=== PATIENT | female | born 1965 | race Two or more races ===

== ENCOUNTER 2019-03-31 08:50 | Day surgery (SDC) | payer OTHER ==
[~2019-03-31] VITALS: Ht 149.9 cm; Wt 53.1 kg
[2019-03-31] VITALS (12 sets, daily range): BP systolic 95–121; BP diastolic 50–80
[~2019-03-31 08:50] MED LIST: PAIN MEDICATION PO
[2019-03-31] MEDS ORDERED: Bacitracin 50000 Units Vial ONE (09:00)
[2019-03-31] MEDS ORDERED: Lidocaine 1% Plain 30 ml INJ ONE (09:00)
[2019-03-31] MEDS ORDERED: Betadine 10% Oint 30gm TOPIC ONE (09:00)
[2019-03-31] MEDS ORDERED: Bupivacaine 0.25% Inj 30ml INJ ONE (09:00)
[2019-03-31] MEDS ORDERED: Dexamethasone 4mg/ml vial ONE (09:00)
[2019-03-31] MEDS ORDERED: ceFAZolin sod 1 GM in NS 55 ML IVPB ONE (09:00)
[2019-03-31] MEDS ORDERED: NS Irrig 1000ml IRRIG ONE ×2 (09:09→10:05)
[2019-03-31] MEDS ORDERED: fentaNYL 100 mcg/2 mL IV ONE (09:18)
[2019-03-31] MEDS ORDERED: Midazolam 2mg/2ml Inj ONE (09:18)
[2019-03-31] MEDS ORDERED: IBUPROFEN600 MG ORAL (09:21)
--- NOTE | 2019-03-31 09:25 | Pre-Procedure Note/Attestation ---
Pre-Procedure Note/Attestation Complete Prior to Procedure Planned Procedure: left Procedure Narrative: correction of bunion with screw fixation and staple left foot , correction of 2nd hammer toe left with arthroplasty and mpj release with k-wire fixation Indications for Procedure Pre-Operative Diagnosis: left foot painful bunion , 2nd toe left hammer toe with mpj contraction Attestation I attest that I discussed the nature of the procedure; its benefits; risks and complications; and alternatives (and the risks and benefits of such alternatives ), prior to the procedure, with the patient (or the patient's legal volunteer patient representative). I attest that, if there was a reasonable possibility of needing a blood transfusion, the patient (or the patient's legal volunteer patient representative) was given the [place] [employer] [facility] standardized written summary, pursuant to the [place] Blood Safety Act ([place] Health and Safety Code # 1645, as amended). I attest that I re-evaluated the patient just prior to the surgery and that there has been no change in the patient's H&P, except as documented below: Nader Roberts DPM Mar 31, 2019 09:25
--- NOTE | 2019-03-31 09:48 | Anethesia Preoperative Eval ---
Anesthesia Pre-op PMH/ROS General Date of Evaluation: Mar 31, 2019 Time of Evaluation: 09:44 Anesthesiologist: alissa ASA Score: ASA 1 Mallampati Score Class I : Soft palate, uvula, fauces, pillars visible Class II: Soft palate, uvula, fauces visible Class III: Soft palate, base of uvula visible Class IV: Only hard plate visible Mallampati Classification: Class I Surgeon: Brock Diagnosis: Bunion Surgical Procedure: Bunionectomy Anesthesia History: none Family History: no anesthesia problems Allergies: Coded Allergies: No Known Allergies (Unverified , 03/31/19) Medications: see eMAR Patient NPO?: Yes NPO Date: Mar 31, 2019 NPO Time: 00:01 Past Medical History Cardiovascular: Denies: HTN, CAD, [place], valve dz, arrhythmia, other Pulmonary: Denies: asthma, COPD, JOSE, other Gastrointestinal/Genitourinary: Denies: GERD, CRI, ESRD, other Neurologic/Psychiatric: Denies: dementia, CVA, depression/anxiety, TIA, other Endocrine: Denies: DM, hypothyroidism, steroids, other HEENT: Denies: cataract (L), cataract (R), glaucoma, EYAK (L), EYAK (R), other Hematology/Immune: Denies: anemia, DVT, bleeding disorder, other Musculoskeletal/Integumentary: Denies: OA, RA, DJD, DDD, edema, other PSxH Narrative: bunionectomy Anesthesia Pre-op Phys. Exam Physician Exam Last Vital Signs Date Time Temp Pulse Resp B/P (MAP) Pulse Ox O2 Delivery O2 Flow Rate FiO2 03/31/19 09:26 Room Air Constitutional: NAD Neurologic: CN 2-12 intact Cardiovascular: RRR Respiratory: CTA Gastrointestinal: S/NT/ND Airway Exam Mallampati Classification 2 Mallampati Score: Class II MO: full ROM: full Dentures: no upper, no lower Anesthesia Pre-op A/P Studies Pre-op Studies: EKG - SR Risk Assessment & Plan Plan: MAC Status Change Before Surgery: No Pre-Antibiotics Drug: ancef Given Within 1 Hr of Incision: Yes Time Given: 10:00 Amber Steen CRNA Mar 31, 2019 09:48
[2019-03-31] MEDS ORDERED: LR 1000ml ONE (09:50)
[2019-03-31] MEDS ORDERED: Sterile Water Irrig 1000ml IRRIG ONE (09:50)
[2019-03-31] MEDS ORDERED: Propofol 200mg/20ml IV ONE (10:37)
[2019-03-31] MEDS ORDERED: Lidocaine 1% MPF 10mg/ml 5ml ONE (10:37)
--- NOTE | 2019-03-31 11:44 | Diagnostic Imaging Report ---
Indication: Foot pain Comparison: None Findings: 3 views of the left foot were obtained. No acute fractures, malalignment, erosions or periostitis are identified. There is a moderate hallux valgus deformity with the some narrowing of the MTP joint. Soft tissues are unremarkable. Impression: No acute findings
--- NOTE | 2019-03-31 12:04 | Brief Operative Note ---
Immediate Post Operative Note Operative Note Pre-op Diagnosis: left foot painful bunion , 2nd toe left hammer toe with mpj contraction Procedure: correction of bunion with osteotomy and screw fication with petra and staple fixation left foot , correction of hammer toe 2nd left with arthroplasty and MPJ release Post-op Diagnosis: same as pre up Post-op Diagnosis: same as pre-op Surgeon: nader roberts Anesthesiologist: dr ca Anesthesia: moderate sedation Specimen: yes Complications: none Condition: stable Fluids: 0 Estimated Blood Loss: none Drains: none Tourniquet time: 100 Implant(s) used?: Yes Nader Roberts DPM Mar 31, 2019 12:04
--- NOTE | 2019-03-31 13:01 | Immediate Post-Op Evaluation ---
Immediate Post-Op Evalulation Immediate Post-Op Evalulation Procedure: left bunionectomy Date of Evaluation: Mar 31, 2019 Time of Evaluation: 12:10 IV Fluids: 600 Blood Pressure Systolic: 97 Blood Pressure Diastolic: 50 Pulse Rate: 58 Respiratory Rate: 14 O2 Sat by Pulse Oximetry: 99 Temperature (Fahrenheit): 97.5 Nausea: No Vomiting: No Complications none Patient Status: awake, reacts, patent Hydration Status: adequate Drug: ancef Given Within 1 Hr of Incision: Yes Time Given: 10:00 Amber Steen CRNA Mar 31, 2019 13:01
--- NOTE | 2019-03-31 13:02 | 48 Hour Post Anesthesia Eval ---
Post Anesthesia Evaluation Procedure: left bunionectomy Date of Evaluation: Mar 31, 2019 Time of Evaluation: 13:01 Hydration Status: adequate Cardiopulmonary Status: stable Mental Status/LOC: patient returned to baseline Amber Steen CRNA Mar 31, 2019 13:01
--- NOTE | 2019-03-31 13:02 | 48 Hour Post Anesthesia Eval ---
Post Anesthesia Evaluation Procedure: left bunionectomy Date of Evaluation: Mar 31, 2019 Time of Evaluation: 13:02 Blood Pressure Systolic: 101 0: 61 Pulse Rate: 51 Respiratory Rate: 14 O2 Sat by Pulse Oximetry: 98 Airway: patent Nausea: No Vomiting: No Hydration Status: adequate Cardiopulmonary Status: stable Mental Status/LOC: patient returned to baseline Post-Anesthesia Complications: none Follow-up care needed: N/A Amber Steen CRNA Mar 31, 2019 13:02
--- NOTE | 2019-03-31 14:11 | Diagnostic Imaging Report ---
Indication: Foot pain Comparison: None Findings: 3 views of the left foot were obtained. Study is significantly degraded by cast present over the midfoot and forefoot. Patient's had previous first distal metatarsal osteotomy with screw fixation. There is also a metallic anchor or staple crossing an osteotomy at the base of the first proximal phalange. IMPRESSION: Postop changes as described above. Study is limited
--- NOTE | 2019-03-31 19:01 | Pre-op HX & Phy Repo 2 SIG ---
DATE OF ADMISSION: 03/31/2019 NOTE: "POOR AUDIO QUALITY" ANTICIPATED DATE OF SURGERY: 03/31/2019 SURGEON: Nader Roberts DPM. HISTORY OF PRESENT ILLNESS: This is a 53-year-old female who has been suffering from left foot pain for the past few years. The patient has been progressively getting worse during the past year. She has tried numerous conservative measures and had consulted orthopedic physician in the past and treatment was rendered. The patient works and requires daily mobility. She does not report any recent illness including nausea, vomiting, fever, chills, or shortness of breath. The patient is scheduled to have surgery today, 03/31/2019, at [facility]. PAST MEDICAL HISTORY: None pertinent. PAST SURGICAL HISTORY: Right foot bunionectomy and hammertoe fixation in 2019. ALLERGIES: No known drug allergies. SOCIAL HISTORY: No illicit drugs. FAMILY HISTORY: No pertinent findings. PHYSICAL EXAMINATION: VITAL SIGNS: Temperature is 98.2, pulse is 68, respiratory rate 16, blood pressure is 134/84, and O2 is 98% on room temperature. DERMATOLOGICAL: There are no open lesions. Hyperkeratotic tissue of the plantar medial of the first MPJ of the left is noticed. VASCULAR: Dorsalis pedis artery and posterior arteries are palpable. No edema. MUSCULOSKELETAL: Bony prominence on the medial side of the left foot is noticeable abutting towards the lateral. The hallux is causing the second toe to overlap. Full muscle strength is noticed. Contraction of the MPJ of the second and PIPJ joint of the second. She almost has decreased motion of the first MPJ with tracking. Pain on palpation and movement of the first MPJ is noticed. ASSESSMENT AND PLAN: This is a 53-year-old female who presents with progressively painful left foot for the past few years. The patient has tried numerous conservative measures; however, she is still experiencing daily pain. I recommended surgery as the next extensive management. The risks, benefits, and alternatives were discussed with the patient in detail who understands and would like to proceed with surgical intervention. All the patient's questions have been addressed and answered. The patient is scheduled to have surgery today, 03/31/2019, at [facility]. Nader Roberts D.P.M. DR: Harsha JOB#: [id number] CC:
--- NOTE | 2019-03-31 21:45 | Operative Note - Dictated ---
DATE OF OPERATION: 03/31/2019 SURGEON: Nader Roberts DPM PREOPERATIVE DIAGNOSES: Hallux abductovalgus with medial eminence, left foot; hammertoe with contracted MPJ, second toe, left. POSTOPERATIVE DIAGNOSES: Hallux abductovalgus with medial eminence, left foot; hammertoe with contracted MPJ, second toe, left. HEMOSTASIS: Pneumatic ankle tourniquet at 250 mmHg. TITLE OF THE SURGERY: Correction of painful bunion of left foot with osteotomy and screw fixation, correction of interphalangeal hallux with Hakeem stable fixation, and correction of hammertoe with arthroplasty and MPJ release. ESTIMATED BLOOD LOSS: Negligible. MATERIALS USED: A 22 mm 3-0 cannulated Vilex screw was used and 8 x 8 x 8 Vilex compression staple was used, 2-0 Vicryl, 3-0 Vicryl, 4-0 nylon. INJECTABLE: A 20 mL of 0.5% Marcaine and 1% lidocaine in the ratio of 1:1 was injected in the left foot in the Mon block fashion at the first MPJ and the second MPJ. Postoperatively, 2 mL of dexamethasone with 2 mL of 0.25% Marcaine was given postoperatively for pain management and decreased inflammation. PATHOLOGY: Bone resected from the head of the proximal phalanx and the medial eminence was sent for pathology and further study. DRESSING: The incision was covered using Xeroform, Betadine ointment, 4 x 4, Kerlix, Andry, and a forefoot cast was applied to the patient. COMPLICATION: None. CONDITION: Stable. ANESTHESIOLOGIST: Dr. Steen. DESCRIPTION OF THE PROCEDURE IN DETAIL: The patient was brought into the operating room and assisted onto the operating table in supine position. She was well padded to avoid any excessive pressure. The patient was then given 1 gram of Ancef before the start of surgery. At this time, a time-out was performed. Cotton padded and pneumatic ankle tourniquet was then placed about the patient's left ankle. Local anesthesia was administered with approximately 20 mL of 1:1 mixture of 0.5% plain Marcaine and 1% lidocaine. The foot was then scrubbed, prepared, and draped in the usual aseptic manner. Attention was then directed to the left foot. Pneumatic ankle tourniquet was then inflated to 250 mmHg using an Esmarch bandage. At this time, a preplanned incision was made on the left foot at the medial dorsal eminence following the contour of the bunion deformity, extending down to the PIPJ of the hallux. The incision was deepened through subcutaneous tissue. All vital structures were inspected and retracted from the field. Bleeders were cauterized and retracted. At this time, the capsule was exposed. A linear capsulotomy was performed to expose the head of the metatarsophalangeal joint. Multicystic changes with hypertrophic bone was noticed. It was also noticed that the bone was extremely osteoporotic diameter was very thin. After the capsule was retracted and released off the head at the metatarsal, the lateral release was done through the original incision. Then, using a sagittal saw, the medial eminence was osteotomized and passed from the field. At this time, it was noticed that there was dorsal exostosis. The exostosis was osteotomized using a sagittal saw. At this time, attention was directed to the plantar adhesion of the sesamoid and sesamoid apparatus was released from the lateral ligament to a more appropriate position. At this time, the osteotomy was done in a modified [place] osteotomy with the V shape with the apex facing distally and the base facing proximally. We did create the capital fragment. The capital fragment was then shifted from its malaligned and medial to a more appropriate lateral position. At this time, because of multiple cystic in the bone, it was difficult to approximate the bone without sinking in. done with eventually good approximation of the head, which is the capital fragment onto the shaft of the metatarsal was done. At this time, a premeasured K-wire was driven from proximal to distal crossing the osteotomy site. The premeasured K-wire was then measured and was noticed to be 22 mm. After sinking and counter-sinking, cannulated screw 3.0 was inserted following the planned K-wire. It was noticed that the bone racetrack steward was optimal, no movement of capital fragment was noticed and stability was achieved with good compression. At this time, attention was directed to the overhanging of the medial eminence where it was smoothed out using a sagittal saw. At this time, attention was directed to the hallux proximal third where a double wedge osteotomy was done carrying from medial to lateral, but not crossing the lateral cortex. Approximately wedge was removed to reduce the hallux curvature. The hallux was put into a more rectus position. At this time, using the staple fixation principle, a staple of 8 x 8 x 8 was inserted. The center of the staple was the osteotomy created on the hallux. It was noticed that great compression was achieved. At this time, capsule tightening was done by removing a wedge of capsule from the medial aspect of the first MPJ and subsequently, the area was flushed using normal saline with antibiotic and the capsule closure was done using 2-0 Vicryl followed by 3-0 Vicryl. Subcutaneous tissue was closed using 4-0 Vicryl. Attention was then directed to the second digit where a linear incision was made over the PIPJ joint. The incision was carried down down to the level of capsule. All bleeders were ligated and all vital structures were retracted. A horizontal capsulotomy was done at the PIPJ joint. The head of the proximal phalanx was noticed after retracting the capsule. At this time, a 3 mm head of the proximal phalanx was removed using a sagittal saw. At this point, attention was then directed to the MPJ where 2 stab incisions with 64 blade was inserted and a dorsal capsulotomy was performed. At this time, using normal saline in combination with antibiotic, the area was lavaged. At this time, the extensor tendon of the PIPJ joint was reapproximated and was then closed using 3-0 Vicryl. Subsequently, the skin was closed with 4-0 nylon for both the bunion and the hammertoe correction. The area was then dressed using Xeroform, Betadine ointment, 4 x 4, Coban, and Andry. After the procedure was done, ankle tourniquet was deflated and immediate hyperemia was noted to digits 1 through 5. At this time, a forefoot cast was applied to the patient. The patient was then transferred from the operating room to the recovery room where she would get postoperative shoe, crutches for possible walk. Instruction was given to the patient. The patient was reminded to take all her medication and set an appointment with Dr. Roberts for next visit. There were no complications of surgery. The patient tolerated the anesthesia and procedure well. She will be discharged home upon the clearance of the Anesthesia. Nader Roberts D.P.M. DR: Harsha JOB#: [id number] CC:
== END 2019-03-31 14:00 | disposition home or self-care (01) ==
LOC: SUR 08:50
DX: M20.12 Hallux valgus (acquired), left foot (principal); M20.42 Other hammer toe(s) (acquired), left foot
CPT/HCPCS: 28298; 73630; C1713; J0690; J1100; J2001; J2250; J2704; J3010; J3490; 94003; 94150